=== PATIENT | male | born 1970 | race Caucasian/White ===

== ENCOUNTER 2018-09-28 23:57 | Emergency (ER) | payer OTHER ==
[~2018-09-28] VITALS: Ht 190.5 cm; Wt 99.8 kg
[~2018-09-28 23:57] MED LIST: ADDERALL 20 MG20 M1 PO; BENTYL 20 MG TA20 M1 PO; CLARITIN10 MG PO; COLESTIPOL HCL1 G1 PO; DIPHENOXYLATE/A1 TA1 PO; FLAGYL500 MG PO; FLOMAX0.4 MG PO; LISINOPRIL10 MG PO; LISINOPRIL20 MG PO; LOMOTIL TABLET1 EACH PO; MULTIVITAMINS1 EAC7 PO; NORCO 5-325 TA1 EACH PO; ONDANSETRON HCL4 M2 PO; OPIUM PO; OPIUM TINC10 MG/1 M1 PO; PROTONIX40 M1 PO; PROTONIX40 M4 PO; SERTRALINE HCL50 MG PO; UNICOMPLEX M TA1 TA1 PO; VYVANSE20 MG PO; XIFAXAN550 M1 PO; ZOFRAN ODT4 MG; ZOFRAN ODT4 MG PO
[2018-09-29] MEDS ORDERED: ZOLOFT25 MG PO (00:11)
[2018-09-29] MEDS ORDERED: PREDNISONE50 MG PO (00:52)
[2018-09-29 01:00] VITALS: BP 147/84
== END 2018-09-29 01:01 | disposition home or self-care (01) ==
LOC: M.ERS 23:57
DX: L50.9 Urticaria, unspecified (principal); I10 Essential (primary) hypertension; Z85.038 Personal history of other malignant neoplasm of large intestine

== ENCOUNTER 2019-02-15 14:11 | Emergency (ER) | payer OTHER ==
[~2019-02-15] VITALS: Ht 190.5 cm; Wt 98.4 kg
[~2019-02-15 14:11] MED LIST changes: +PREDNISONE50 MG PO; +ZOLOFT25 MG PO
[2019-02-15] MEDS ORDERED: OPIUM TINC10 MG/1 M1 PO (14:25)
[2019-02-15 14:55] LABS: ABSOLUTE BASOPHILS 0.1 thou/uL (0.0-0.2); ABSOLUTE EOSINOPHILS 0.3 thou/uL (0.0-0.7); ABSOLUTE LYMPHOCYTES 1.3 thou/uL (0.8-5.3); ABSOLUTE MONOCYTES 0.6 thou/uL (0.0-1.2); ABSOLUTE NEUTROPHILS 7.8 thou/uL (1.6-8.1); BASOPHILS 0.6 %; EOSINOPHILS 2.7 %; HEMATOCRIT 49.8 % (42.0-52.0); HEMOGLOBIN 17.2 gm/dL (14.0-18.0); LYMPHOCYTES 12.8 %; MCH 27.6 pg (26.0-34.0); MCHC 34.5 g/dL (28.0-37.0); MCV 79.9 fL (80.0-100.0); MONOCYTES 5.7 %; MPV 7.5 fl. (7.2-11.1); NUCLEATED RBCS 0 /100WBC; PLATELET COUNT* 378 thou/uL (150-400); POLYS 78.2 %; RBC 6.24 mil/uL (4.50-6.00); RDW-CV 14.6 % (10.5-14.5); WBC 9.9 thou/uL (4.0-11.0)
[2019-02-15 15:03] LABS: CALCIUM 11.1 mg/dL (8.5-10.1); CREATININE 1.2 mg/dL (0.6-1.3); POTASSIUM 4.8 mmol/L (3.5-5.1)
[2019-02-15 15:07] LABS: ALBUMIN 5.1 g/dL (3.4-5.0); TOTAL BILIRUBIN 0.6 mg/dL (<0.1-1.0); TOTAL PROTEIN 9.5 g/dL (6.4-8.2)
[2019-02-15] MEDS ORDERED: ZOFRAN ODT4 MG DISSOLVE ×2 (15:55→16:00)
[2019-02-15] MEDS ORDERED: BENTYL 20 MG TA20 M1 PO ×2 (15:55→16:00)
[2019-02-15 17:18] VITALS: BP 131/84
--- NOTE | 2019-02-16 17:59 | EKG ---
[place] [address] ELECTROCARDIOGRAM REPORT Name: ALEJANDRARADHA Room: [facility]#: [id number] Admission: 02/15/19 Attend Phys: Discharge: 02/15/19 Date of : 72 Report #: [id number] THIS REPORT FOR: //name// [facility] ED Test Date: 2019-02-15 Test Time: 14:53:47 Pat Name: RADHA ROBERTS Department: Room: Gender: M [employer] Associate: : 1970 Requested By: Felix Figueroa Order Number: [id number] MD: Demarcus Barcenas Measurements Intervals [place] Rate: 95 P: 51 NV: 146 QRS: 66 QRSD: 89 T: 47 QT: 336 QTc: 423 Interpretive Statements Sinus rhythm Probable left atrial enlargement ST elev, probable normal early repol pattern Baseline wander in lead(s) I,III,aVL Compared to ECG 12/08/2015 14:14:35 No significant changes Electronically Signed On 02-16-2019 17:59:25 CDT by Demarcus Barcenas [email or web address] <ELECTRONICALLY SIGNED> By: Demarcus Barcenas MD, FACC 02/16/19 1759 1453 1453 Demarcus Barcenas MD, [facility] /EPI
== END 2019-02-15 16:08 | disposition home or self-care (01) ==
LOC: M.ERS 14:11
PROVIDERS: Emergency Medicine Emergency Medical Services
DX: K52.9 Noninfective gastroenteritis and colitis, unspecified (principal); I10 Essential (primary) hypertension; Z85.038 Personal history of other malignant neoplasm of large intestine

== ENCOUNTER 2019-11-12 15:32 | Emergency (ER) | payer OTHER ==
[~2019-11-12] VITALS: Ht 190.5 cm; Wt 103.9 kg
[~2019-11-12 15:32] MED LIST changes: +ZOFRAN ODT4 MG DISSOLVE
[2019-11-12] MEDS ORDERED: PRINIVIL10 MG PO (15:48)
[2019-11-12] MEDS ORDERED: OPIUM TINC10 MG/1 M1 PO (15:49)
[2019-11-12] MEDS ORDERED: LOMOTIL TABLET1 EACH PO (15:49)
[2019-11-12 16:02] LABS: URINE BLOOD NEGATIVE (Negative); URINE CLARITY CLEAR; URINE COLOR YELLOW; URINE GLUCOSE-RANDOM NEGATIVE (Negative); URINE KETONES NEGATIVE (Negative); URINE LEUKOCYTES-REFLEX NEGATIVE (Negative); URINE NITRITE-REFLEX NEGATIVE (Negative); URINE PROTEIN NEGATIVE (Negative); URINE SPECIFIC GRAVITY >= 1.030 (1.005-1.030); URINE UROBILINOGEN 0.2 E.U./dl (0.2-1.0)
[2019-11-12 16:04] LABS: ICTOTEST (BILI CONFIRMATORY) Negative (Negative); URINE BILIRUBIN 1+ (Negative)
[2019-11-12 16:04] LABS: ABSOLUTE BASOPHILS 0.1 thou/uL (0.0-0.2); ABSOLUTE EOSINOPHILS 0.5 thou/uL (0.0-0.7); ABSOLUTE MONOCYTES 0.7 thou/uL (0.0-1.2); ABSOLUTE NEUTROPHILS 7.2 thou/uL (1.6-8.1); BASOPHILS 0.7 %; EOSINOPHILS 4.6 %; HEMATOCRIT 49.5 % (42.0-52.0); HEMOGLOBIN 16.8 gm/dL (14.0-18.0); LYMPHOCYTES 19.4 %; MCV 79.5 fL (80.0-100.0); MONOCYTES 6.5 %; NUCLEATED RBCS 0 /100WBC; PLATELET COUNT* 422 thou/uL (150-400); POLYS 68.8 %; RBC 6.22 mil/uL (4.50-6.00); RDW-CV 15.3 % (10.5-14.5); WBC 10.4 thou/uL (4.0-11.0)
[2019-11-12 16:15] LABS: CALCIUM 10.3 mg/dL (8.5-10.1); POTASSIUM 4.1 mmol/L (3.5-5.1)
[2019-11-12 16:21] LABS: ALBUMIN 5.2 g/dL (3.4-5.0); TOTAL BILIRUBIN 0.8 mg/dL (<0.1-1.0); TOTAL PROTEIN 9.5 g/dL (6.4-8.2)
[2019-11-12] MEDS ORDERED: ZOFRAN ODT4 MG SUBLING (16:56)
[2019-11-12 17:14] VITALS: BP 132/92
== END 2019-11-12 17:15 | disposition home or self-care (01) ==
LOC: M.ERS 15:32
PROVIDERS: Family Medicine
DX: E86.0 Dehydration (principal); R11.2 Nausea with vomiting, unspecified; I10 Essential (primary) hypertension; Z85.038 Personal history of other malignant neoplasm of large intestine

== ENCOUNTER 2020-04-10 06:02 | Observation (INO) | payer OTHER ==
[~2020-04-10] VITALS: Ht 190.5 cm; Wt 104.8 kg
[~2020-04-10 06:02] MED LIST changes: +PRINIVIL10 MG PO; +ZOFRAN ODT4 MG SUBLING
[2020-04-10 06:06] VITALS: BP 141/119
[2020-04-10] MEDS ORDERED: ZOLOFT100 MG PO (06:10)
[2020-04-10 06:33] LABS: ABSOLUTE BASOPHILS 0.1 thou/uL (0.0-0.2); ABSOLUTE EOSINOPHILS 0.5 thou/uL (0.0-0.7); ABSOLUTE LYMPHOCYTES 1.8 thou/uL (0.8-5.3); ABSOLUTE MONOCYTES 0.6 thou/uL (0.0-1.2); ABSOLUTE NEUTROPHILS 10.1 thou/uL (1.6-8.1); BASOPHILS 0.4 %; EOSINOPHILS 3.7 %; HEMATOCRIT 52.5 % (42.0-52.0); HEMOGLOBIN 17.6 gm/dL (14.0-18.0); MCH 26.8 pg (26.0-34.0); MCHC 33.5 g/dL (28.0-37.0); MCV 80.1 fL (80.0-100.0); MONOCYTES 4.6 %; MPV 7.5 fl. (7.2-11.1); NUCLEATED RBCS 0 /100WBC; PLATELET COUNT* 494 thou/uL (150-400); POLYS 77.3 %; RBC 6.56 mil/uL (4.50-6.00); RDW-CV 14.4 % (10.5-14.5); WBC 13.1 thou/uL (4.0-11.0)
[2020-04-10 06:51] LABS: CALCIUM 11.2 mg/dL (8.5-10.1); CREATININE 2.1 mg/dL (0.6-1.3); POTASSIUM 4.6 mmol/L (3.5-5.1)
[2020-04-10 06:55] LABS: ALBUMIN 5.6 g/dL (3.4-5.0); MAGNESIUM 2.4 mg/dL (1.8-2.4); TOTAL BILIRUBIN 0.5 mg/dL (<0.1-1.0); TOTAL PROTEIN 10.3 g/dL (6.4-8.2)
[2020-04-10 08:26] LABS: URINE BLOOD NEGATIVE (Negative); URINE CLARITY SL CLOUDY; URINE COLOR DARK YELLOW; URINE GLUCOSE-RANDOM NEGATIVE (Negative); URINE KETONES TRACE (Negative); URINE LEUKOCYTES-REFLEX NEGATIVE (Negative); URINE NITRITE-REFLEX NEGATIVE (Negative); URINE PROTEIN 2+ (Negative); URINE SPECIFIC GRAVITY >= 1.030 (1.005-1.030); URINE UROBILINOGEN 0.2 E.U./dl (0.2-1.0)
[2020-04-10 08:32] LABS: ICTOTEST (BILI CONFIRMATORY) Negative (Negative); URINE BILIRUBIN 1+ (Negative)
[2020-04-10 08:51] LABS: CALCIUM OXALATE >10 Many /LPF (None Seen); HYALINE CASTS >10 Many /LPF (None Seen); MUCUS >6 Heavy strn/LPF (None Seen); SQUAMOUS 0-3 Few /LPF (0-3); URINE RBC None Seen /HPF (0-2); URINE WBC-REFLEX 0-5 Rare /HPF (0-5)
[2020-04-10 10:37] LABS: CK-MB MASS 1.4 ng/mL (<0.5-3.6)
[2020-04-10 11:31] LABS: CALCIUM 9.6 mg/dL (8.5-10.1); CREATININE 1.5 mg/dL (0.6-1.3); POTASSIUM 5.3 mmol/L (3.5-5.1)
[2020-04-10 11:45] VITALS: BP 151/110
[2020-04-10 12:43] VITALS: BP 139/93
[2020-04-10 12:50] VITALS: BP 133/86
[2020-04-10 17:08] VITALS: BP 126/89
[2020-04-10 19:41] VITALS: BP 139/88
[2020-04-11 04:45] LABS: HEMATOCRIT 40.8 % (42.0-52.0); MCH 26.8 pg (26.0-34.0); MCHC 33.9 g/dL (28.0-37.0); MCV 79.3 fL (80.0-100.0); MPV 7.4 fl. (7.2-11.1); RBC 5.15 mil/uL (4.50-6.00); RDW-CV 14.6 % (10.5-14.5); WBC 8.8 thou/uL (4.0-11.0)
[2020-04-11 05:01] LABS: HEMOGLOBIN 13.8 gm/dL (14.0-18.0)
[2020-04-11 05:05] LABS: CALCIUM 9.5 mg/dL (8.5-10.1); CREATININE 0.9 mg/dL (0.6-1.3); MAGNESIUM 2.3 mg/dL (1.8-2.4)
[2020-04-11 05:29] LABS: POTASSIUM 4.2 mmol/L (3.5-5.1)
[2020-04-11 08:25] VITALS: BP 136/94
--- NOTE | 2020-04-11 14:09 | EKG ---
[place] [address] ELECTROCARDIOGRAM REPORT Name: ALEJANDRARADHA Room: [address] M.R.#: [id number] Admission: 04/10/20 Attend Phys: Denzel Stover, Discharge: Date of : 72 Date of Service: 04/10/2015 Report #: [id number] THIS REPORT FOR: //name// [facility] ED Test Date: 2020-04-10 Test Time: 06:15:33 Pat Name: RADHA ROBERTS Department: Room: [address] Gender: M Support Services Manager: AUBREY : 1970 Requested By: Marina Stephenson Order Number: [id number] MD: Demarcus Barcenas Measurements Intervals [place] Rate: 112 P: 56 PA: 148 QRS: 65 QRSD: 98 T: 28 QT: 321 QTc: 438 Interpretive Statements Sinus tachycardia Probable left atrial enlargement Compared to ECG 02/15/2019 14:53:47 Sinus rhythm no longer present Electronically Signed On 04-11-2020 14:09:29 [employer] RO[employer] by Demarcus Barcenas [email or web address] <ELECTRONICALLY SIGNED> By: Demarcus Barcenas MD, MERGED WITH [facility] 04/11/20 1409 0615 0615 Demarcus Barcenas MD, [facility]GED WITH [facility] /EPI
[2020-04-11 15:14] VITALS: BP 136/94
== END 2020-04-11 15:30 | disposition home or self-care (01) ==
LOC: M.ERS 06:02 → M.TBA-ER 09:45 → M.3W 09:45
PROVIDERS: Emergency Medicine; Personal Emergency Response Attendant; ADMIT Internal Medicine; ATTEND Internal Medicine
DX: A08.4 Viral intestinal infection, unspecified (principal); N17.9 Acute kidney failure, unspecified; E86.9 Volume depletion, unspecified; R11.2 Nausea with vomiting, unspecified; I10 Essential (primary) hypertension; F32.9 Major depressive disorder, single episode, unspecified; Z85.038 Personal history of other malignant neoplasm of large intestine; Z79.899 Other long term (current) drug therapy; Z20.828 Contact with and (suspected) exposure to other viral communicable diseases